=== PATIENT | female | born 1955 | race Caucasian/White ===

== ENCOUNTER → 2016-06-01 | Outpatient (CLI) | payer OTHER | LOC: MC.RAD 09:12 | DX: Z12.31 Encounter for screening mammogram for malignant neoplasm of breast (principal); N63 Unspecified lump in breast ==

== ENCOUNTER → 2016-07-15 | Outpatient (CLI) | payer OTHER | LOC: MC.RAD 10:21 | DX: R92.2 Inconclusive mammogram (principal); D24.1 Benign neoplasm of right breast ==

== ENCOUNTER → 2017-10-14 | Outpatient (CLI) | payer SELFPAY | LOC: COL.RAD 13:11 | DX: R22.42 Localized swelling, mass and lump, left lower limb (principal); S80.12XA Contusion of left lower leg, initial encounter ==